=== PATIENT | female | born 1955 | race Caucasian/White ===

== ENCOUNTER 2021-05-07 08:00 | Outpatient (CLI) | payer OTHER ==
[~2021-05-07 08:00] MED LIST: ATACAND16 MG PO; FLAGYL500MG PO; GILTUSS LIQUID237 ML PO; HYOSCYAMINE0.125 M1 SL; LEVSIN 0.125 MG PO; PROTONIX40 MG PO; ZANTAC150 M1 PO; ZITHROMAX TRI-500 MG PO
== END 2021-05-07 09:00 | disposition home or self-care (01) ==
LOC: MAMO-SONO 08:00 → SONOGRAMA 13:45 → MAMO-SONO 05-28 13:45
PROVIDERS: ATTEND Obstetrics & Gynecology
DX: N84.0 Polyp of corpus uteri (principal)

== ENCOUNTER 2021-05-28 10:30 | Outpatient (CLI) | payer OTHER | END 2021-05-29 11:53 | disposition home or self-care (01) | LOC: MAMO-SONO 10:30 | PROVIDERS: ATTEND Obstetrics & Gynecology | DX: R92.1 Mammographic calcification found on diagnostic imaging of breast (principal); Z12.31 Encounter for screening mammogram for malignant neoplasm of breast; N60.11 Diffuse cystic mastopathy of right breast; N60.12 Diffuse cystic mastopathy of left breast ==

== ENCOUNTER 2021-05-30 15:07 | Emergency (ER) | payer OTHER ==
[~2021-05-30] VITALS: Ht 157.5 cm; Wt 93.0 kg
[2021-05-31] MEDS ORDERED: MECLIZINE HCL25 MG PO (05:49)
[2021-05-31] MEDS ORDERED: PHENERGAN25 MG PO (05:49)
== END 2021-05-31 06:23 | disposition home or self-care (01) ==
LOC: ER 15:07
DX: R42 Dizziness and giddiness (principal); E86.0 Dehydration; E87.8 Other disorders of electrolyte and fluid balance, not elsewhere classified

== ENCOUNTER 2021-07-16 08:57 | Outpatient (CLI) | payer OTHER ==
[~2021-07-16 08:57] MED LIST changes: +MECLIZINE HCL25 MG PO; +PHENERGAN25 MG PO
== END 2021-07-16 10:07 | disposition home or self-care (01) ==
LOC: LAB 08:57
PROVIDERS: ATTEND Obstetrics & Gynecology
DX: R05 Cough (principal); N95.0 Postmenopausal bleeding

== ENCOUNTER 2023-07-16 19:10 | Inpatient (IN) | payer OTHER ==
[~2023-07-16] VITALS: Ht 175.3 cm; Wt 81.6 kg
--- NOTE | 2023-07-16 19:22 | NUR ---
PACIENTE FEMENINA ALERTA Y ORIENTADA X3, REFIERE TENER VOMITOS Y DIARREAS.
[2023-07-16 20:21] LABS: HEMATOCRIT 33.9 % (36.0-45.00); HEMOGLOBIN 10.6 g/dL (12.0-15.00); MEAN CELL VOLUME 84.1 fL (80.00-100.00); MEAN CORPUSCULAR HEMOGLOBIN 26.2 pg (27.00-32.0); MEAN CORPUSCULAR HGB CONC 31.2 g/dl (32.0-36.0); PLATELET COUNT 505 K/uL (150-450); RED BLOOD COUNT 4.03 M/uL (4.00-6.00); RED CELL DISTRIBUTION WIDTH 13.9 % (11.5-14.5)
[2023-07-16 20:44] LABS: CALCIUM 9.2 mg/dL (8.5-10.1); CREATININE SERUM 0.84 mg/dL (0.55-1.02); GFR 67.22; POTASSIUM 4.15 mEq/L (3.5-5.1)
[2023-07-16 20:59] LABS: URINE APPEARANCE Cloudy; URINE BACTERIA 141.4 uL (0.0-1933); URINE BILIRRUBIN Negative (NEGATIVE); URINE BLOOD Large; URINE COLOR Dark Yellow; URINE EPITHELIAL CELLS 15.3 uL (0.0-38.8); URINE GLUCOSE Negative (NEGATIVE); URINE LEUKOCYTE Moderate; URINE NITRATE Negative; URINE RBC 5192.6 uL (0.0-20.8); URINE WBC 105.8 uL (0.0-23.2)
[2023-07-16 21:23] LABS: URINE PROTEIN 100 (NEGATIVE)
[2023-07-18 07:38] LABS: HEMATOCRIT 31.4 % (36.0-45.00); MEAN CELL VOLUME 84.9 fL (80.00-100.00); MEAN CORPUSCULAR HEMOGLOBIN 26.4 pg (27.00-32.0); MEAN CORPUSCULAR HGB CONC 31.1 g/dl (32.0-36.0); PLATELET COUNT 455 K/uL (150-450); RED BLOOD COUNT 3.71 M/uL (4.00-6.00); RED CELL DISTRIBUTION WIDTH 14.1 % (11.5-14.5)
[2023-07-18 07:42] LABS: HEMOGLOBIN 9.8 g/dL (12.0-15.00)
[2023-07-18 08:05] LABS: ALBUMIN 2.4 gm/dL (3.4-5.0); BILIRUBIN TOTAL 0.4 mg/dL (0.3-1.2); CALCIUM 8.6 mg/dL (8.5-10.1); CREATININE SERUM 0.79 mg/dL (0.55-1.02); GFR 72.16; GLOBULINA 4.6 G/DL (2.4-3.5); POTASSIUM 4.05 mEq/L (3.5-5.1)
[2023-07-19 06:47] LABS: HEMATOCRIT 29.1 % (36.0-45.00); HEMOGLOBIN 9.4 g/dL (12.0-15.00); MEAN CELL VOLUME 83.7 fL (80.00-100.00); MEAN CORPUSCULAR HGB CONC 32.2 g/dl (32.0-36.0); PLATELET COUNT 439 K/uL (150-450); RED BLOOD COUNT 3.48 M/uL (4.00-6.00); RED CELL DISTRIBUTION WIDTH 14.2 % (11.5-14.5)
[2023-07-22 06:33] LABS: HEMOGLOBIN 9.7 g/dL (12.0-15.00); MEAN CELL VOLUME 82.9 fL (80.00-100.00); MEAN CORPUSCULAR HEMOGLOBIN 27.7 pg (27.00-32.0); MEAN CORPUSCULAR HGB CONC 33.4 g/dl (32.0-36.0); PLATELET COUNT 398 K/uL (150-450); RED BLOOD COUNT 3.49 M/uL (4.00-6.00); RED CELL DISTRIBUTION WIDTH 14.6 % (11.5-14.5)
[2023-07-22 06:55] LABS: ALBUMIN 2.1 gm/dL (3.4-5.0); BILIRUBIN TOTAL 0.22 mg/dL (0.3-1.2); CALCIUM 8.5 mg/dL (8.5-10.1); CREATININE SERUM 0.54 mg/dL (0.55-1.02); GFR 111.94; GLOBULINA 4.2 G/DL (2.4-3.5); MAGNESIUM 1.5 mg/dL (1.8-2.4); POTASSIUM 3.77 mEq/L (3.5-5.1); TOTAL PROTEIN 6.3 gm/dL (6.4-8.2)
[2023-07-22 06:59] LABS: C-REACTIVE PROTEIN 0.63 MG/DL (0.00-0.29)
[2023-07-22 08:35] LABS: URINE APPEARANCE Clear; URINE BILIRRUBIN Negative (NEGATIVE); URINE BLOOD Large; URINE COLOR Yellow; URINE GLUCOSE Negative (NEGATIVE); URINE LEUKOCYTE Small; URINE NITRATE Negative; URINE PROTEIN 30 (NEGATIVE); URINE UROBILINOGEN 0.2 E.U./dl
[2023-07-22 08:39] LABS: URINE BACTERIA 60.4 uL (0.0-1933); URINE RBC 478.5 uL (0.0-20.8); URINE WBC 236.5 uL (0.0-23.2)
== END 2023-07-24 14:03 | disposition home or self-care (01) | DRG 392 ==
LOC: ER 19:11 → MEDI 07-17 00:05 → SEC-K 07-17 00:05 → MEDI 07-17 04:03
PROVIDERS: Internal Medicine Infectious Disease; Nurse Practitioner Family; ADMIT Specialist; ATTEND Specialist
PROC: BW21YZZ Computerized Tomography (CT Scan) of Abdomen and Pelvis using Other Contrast (ICD-10-PCS; principal; 2023-07-16)
DX: K57.32 Diverticulitis of large intestine without perforation or abscess without bleeding (principal); N39.0 Urinary tract infection, site not specified; I10 Essential (primary) hypertension; B96.89 Other specified bacterial agents as the cause of diseases classified elsewhere; E04.1 Nontoxic single thyroid nodule

== ENCOUNTER 2023-10-13 11:05 | Inpatient (IN) | payer OTHER ==
[~2023-10-13] VITALS: Ht 162.6 cm; Wt 113.4 kg
[2023-10-13 11:57] LABS: ABG PH 7.425 (7.35-7.45); ABG PO2 171.1 mmHg (80-100); ABG pCO2 19.3 mmHg (35-45); BASE EXCESS -9.2 mmol/l; BICARBONATE 12.4 mmol/l (23-25); SaO2 99.5 %
[2023-10-13 11:58] LABS: allen test SATISFACTORY; o2 100 %; puncture site RADIAL RIGHT
[2023-10-13 12:10] LABS: HEMATOCRIT 24.9 % (36.0-45.00); MEAN CELL VOLUME 83.6 fL (80.00-100.00); MEAN CORPUSCULAR HGB CONC 32.1 g/dl (32.0-36.0); RED BLOOD COUNT 2.98 M/uL (4.00-6.00)
[2023-10-13 12:11] LABS: MEAN CORPUSCULAR HEMOGLOBIN 26.8 pg (27.00-32.0)
[2023-10-13 12:13] LABS: PLATELET COUNT 59 K/uL (150-450)
[2023-10-13 12:36] LABS: ALBUMIN 1.6 gm/dL (3.4-5.0); BILIRUBIN TOTAL 0.96 mg/dL (0.3-1.2); CALCIUM 7.6 mg/dL (8.5-10.1); CREATININE SERUM 2.66 mg/dL (0.55-1.02); GFR 17.78; GLOBULINA 4.2 G/DL (2.4-3.5); TOTAL PROTEIN 5.8 gm/dL (6.4-8.2)
[2023-10-13 12:42] LABS: INR 1.31; PARTIAL THROMBOPLASTIN TIME 20.8 SECONDS (22.0-34.0); PROTHROMBIN TIME 13.5 SECONDS (9.0-11.5)
[2023-10-13 13:04] LABS: RED CELL DISTRIBUTION WIDTH 18.6 % (11.5-14.5)
[2023-10-13 13:11] LABS: PH,URINE >= 9.0 (5.0-8.0); URINE APPEARANCE Turbid; URINE BILIRRUBIN Moderate (NEGATIVE); URINE BLOOD Negative; URINE COLOR Dark Yellow; URINE LEUKOCYTE Large; URINE NITRATE Negative; URINE PROTEIN >=1000 (NEGATIVE)
[2023-10-13 13:16] LABS: URINE EPITHELIAL CELLS 27.8 uL (0.0-38.8); URINE RBC 119.9 uL (0.0-20.8)
[2023-10-13 13:42] LABS: POTASSIUM 5.96 mEq/L (3.5-5.1)
[2023-10-13 13:48] LABS: URINE GLUCOSE 100 MG/DL (NEGATIVE)
[2023-10-13 13:49] LABS: URINE BACTERIA > 9821.2 uL (0.0-1933)
[2023-10-13 13:51] LABS: URINE CRYSTALS FEW /HPF
[2023-10-13 18:25] LABS: MEAN CELL VOLUME 86.2 fL (80.00-100.00); MEAN CORPUSCULAR HGB CONC 30.7 g/dl (32.0-36.0); RED BLOOD COUNT 2.74 M/uL (4.00-6.00); RED CELL DISTRIBUTION WIDTH 19.2 % (11.5-14.5)
[2023-10-13 19:05] LABS: COL EPI 233 SECONDS (82-175)
[2023-10-13 19:22] LABS: FIBRINOGEN 168 mg/dL (187.0-446.0)
[2023-10-13 19:33] LABS: MEAN CORPUSCULAR HEMOGLOBIN 26.2 pg (27.00-32.0)
[2023-10-13 19:34] LABS: HEMOGLOBIN 7.2 g/dL (12.0-15.00); PLATELET COUNT 51 K/uL (150-450)
[2023-10-13 19:35] LABS: HEMATOCRIT 23.6 % (36.0-45.00)
== END 2023-10-13 19:02 | disposition expired | DRG 871 ==
LOC: ER 11:05 → ICU-2 17:41
PROVIDERS: Emergency Medicine; General Practice; ADMIT Internal Medicine; ATTEND Internal Medicine
PROC: 4A033R1 Measurement of Arterial Saturation, Peripheral, Percutaneous Approach (ICD-10-PCS; principal; 2023-10-13)
PROC: 0BH17EZ Insertion of Endotracheal Airway into Trachea, Via Natural or Artificial Opening (ICD-10-PCS; 2023-10-13)
PROC: 5A1935Z Respiratory Ventilation, Less than 24 Consecutive Hours (ICD-10-PCS; 2023-10-13)
PROC: 5A12012 Performance of Cardiac Output, Single, Manual (ICD-10-PCS; 2023-10-13)
DX: A41.9 Sepsis, unspecified organism (principal); D65 Disseminated intravascular coagulation [defibrination syndrome]; R65.21 Severe sepsis with septic shock; I46.9 Cardiac arrest, cause unspecified; Z20.822 Contact with and (suspected) exposure to COVID-19